=== PATIENT | female | born 1980 | race African-American/Black ===

== ENCOUNTER 2018-03-18 20:35 | Emergency (ER) | payer OTHER ==
[2018-03-18 20:45] VITALS: BP 117/75; PULSE 94; TEMP 98.8; BMI 33.5
--- NOTE | 2018-03-18 21:24 | PDOC ---
Attending Attestation - Resident Resident Name: Micheal Tejada - ED Attending Attestation I have performed the following: I have examined & evaluated the patient, The case was reviewed & discussed with the resident, I agree w/resident's findings & plan, Exceptions are as noted - HPI HPI: 03/21/18 11:22 Ms Cosme Neely is a 38 y/o female presenting to [facility] ER due to headache and concern that she is experiencing a stroke. Pt has a h/o migraine which typically begins with left eye aura followed by right sided eye pain/head pain. Pt had this this evening, gradual progression of pain No fevers or chills no neurologic deficits - weakness, numbness or confusion The patient was seen in the past by Dr Benjamin and due to headaches she had an MRI which was abnormal She followed up with Neuro, no specific plan When she typically gets this headache, it improved after taking Excedrin. she did that this evening and headache has been improving Last week she had an episode of numbness which resolved. That in addition to the headache prompted her ER visit to [facility] for CVA - Physicial Exam PE: 03/21/18 11:25 Constitutional: Well-developed, well-nourished female in no acute distress. Alert and oriented x4. Head: Normocephalic. No obvious external signs of trauma. Eyes: PERRL. EOMI. Sclerae white. Conjunctiva moist and not injected. Cardiovascular: Regular rate and regular rhythm. No murmur, rubs, gallops. Respiratory:Clear to auscultation bilaterally. Gastrointestinal: abdomen is soft, non-tender, non-distended. Neuro: Alert and oriented.No focal deficits. Moving all four extremities spontaneously. Intact sensation to all four extremities. Cranial nerves II-XII intact. Skin: Warm, dry, and intact. No bruising, rashes, or other lesions.
--- NOTE | 2018-03-18 22:04 | PDOC ---
History of Present Illness - General Chief Complaint: CVA/TIA Stated Complaint: HEADACHE Time Seen by Provider: 03/18/18 20:58 History Source: Patient, Spouse Exam Limitations: No Limitations - History of Present Illness Initial Comments: 38 y/o female presenting to [facility] ER via private auto concerned that she is experiencing a stroke. The pt is complaining of a headache localized periorbitally on the right side. It was preceded by a visual aura in the left eye. Headache was not maximal at onset; progressively worsened over 15-20 minutes. Denies facial drooping, trouble swallowing, or gait disturbance. Endorses lacrimation from R eye. Took 2x OTC Excedrin with has provided a little bit of relief. She reports a history of similar headaches occuring once a month since 2014. 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 Cause is unknown to pt; denies personal or familial h/o CVA , sickle cell trait or disease, or coagulopathies. Past History - Past Medical History Allergies/Adverse Reactions: Allergies Allergy/AdvReac Type Severity Reaction Status Date / Time No Known Allergies Allergy Verified 03/18/18 20:42 Home Medications: Ambulatory Orders Aspirin 81 mg PO DAILY 03/18/18 Atorvastatin Calcium [Lipitor] 10 mg PO DAILY 03/18/18 CVA: Yes (12/2017) COPD: No - Suicide/Smoking/Psychosocial Hx Smoking Status: Yes Smoking History: Current every day smoker Number of Cigarettes Smoked Daily: 20 Information on smoking cessation initiated: Yes 'Breaking Loose' booklet given: 03/18/18 Hx Alcohol Use: No Drug/Substance Use Hx: No Review of Systems - Review of Systems Constitutional: No: Chills, Diaphoresis, Fever HEENTM: Yes: See HPI Respiratory: No: Shortness of Breath Cardiac (ROS): No: Chest Pain, Lightheadedness, Palpitations, Syncope ABD/GI: No: Constipated, Diarrhea, Nausea, Vomiting : No: Burning, Dysuria, Discharge, Frequency, Hematuria Musculoskeletal: No: Muscle Pain Integumentary: No: Bruising, Rash, Sweating Neurological: Yes: Headache. No: Numbness, Paresthesia, Seizure, Tingling, Tremors, Weakness, Unsteady Gait, Ataxia, Dizziness Hematologic/Lymphatic: No: Easy Bleeding, Easy Bruising *Physical Exam - Vital Signs Last Vital Signs Temp Pulse Resp BP Pulse Ox 98.8 F 94 H 18 117/75 99 03/18/18 20:42 03/18/18 20:42 03/18/18 20:42 03/18/18 20:42 03/18/18 20:42 - Physical Exam Comments: Constitutional: Well-developed, well-nourished female in no acute distress. Found semi-fowlers in hospital bed. Alert and oriented x4. Answered all questions appropriately and completely. Speech was non-labored, non-pressured. Head: Normocephalic. No obvious external signs of trauma. Eyes: PERRL. EOMI. Sclerae white. Conjunctiva moist and not injected. NOSE: No nasal discharge. THROAT: Oral cavity and pharynx normal. No inflammation, swelling, exudate, or lesions. Teeth and gingiva in good general condition. ENT: EAMs normal. Hearing normal. Nasal mucosa normal. Lips, gums and oropharynx: pink, moist, not injected, no lesions, no ulcerations Neck: Supple, trachea is midline. No JVD or thyromegaly. Cardiovascular: Regular rate and regular rhythm. No murmur, rubs, clicks, or gallops. Peripheral pulses: Radial pulses full. PMI not displaced. Respiratory: Equal chest rise and fall. Clear to auscultation bilaterally. No stridor, no wheezing, no rhonchi. Gastrointestinal: abdomen is soft, non-tender, non-distended. Neuro: Alert and oriented.No focal deficits. Moving all four extremities spontaneously. Intact sensation to all four extremities. Upper extremity and lower extremity proximal and distal strength 5/5, fabrication supervisor strength 5/5 - equal and symmetric. Plantar flexion and dorsiflexion 5/5. Normal finger to nose. Negative Romberg. Cranial nerves II-XII intact. Psych: Affect: appropriate. Mood: normal. Skin: Warm, dry, and intact. No bruising, rashes, or other lesions. Medical Decision Making - Medical Decision Making *Reviewed nursing notes and prior visit documentation. 38 y/o female complaining of right periorbital headache with preceding visual aura and right eye lacrimation. History of similar episodes in past and previous cortical infarct discovered on outpatient MRI. Concerned as she experienced an episode of slurred speech a few weeks ago. Afebrile. Vitals unremarkable for hypotension, hypertension, or tachycardia. Physical exam revealed no neurologic deficits. Symptoms concerning for migraine versus cluster headache versus tension headache. Low suspicion for CVA/TIA as no neurologic deficits appreciated. Non-con head CT ordered by RME. Pt placed on oxygen 2 LPM via nasal cannula for symptom relief.. Head CT: Unremarkable for acute hemorrhagic or ischemic changes. 21:[address] Gilliam, neurology. Pt preferred to not have consult with Dr. Gillette, the neurologist [employer] consultant. 22:04 Pt reports symptoms are improving with oxygen. Possible relief from OTC Excedrin from prior to arrival. Dr. Gilliam did not return page. Pt stated that she felt her condition did not require emergent neurology consult this evening as her symptoms were improving. Discussed risks and benefits with pt and . Also discussed normal imaging study. Answered all questions. Both pt and expressed verbal understanding and agreement with plan to discharge home with outpatient neurology evaluation within the next 2-3 days. Pt discharged from the department without further incident. *DC/Admit/Observation/Transfer Diagnosis at time of Disposition: Headache Qualifiers: Headache type: unspecified Headache chronicity pattern: acute headache Intractability: not intractable Qualified Code(s): R51 - Headache - Discharge Dispostion Disposition: HOME Condition at time of disposition: Good Decision to Admit order: No - Referrals Referrals: Beatriz Benjamin MD [Primary Care Provider] - Ramya Gilliam MD [Staff Physician] - - Patient Instructions Printed Discharge Instructions: DI for Headache, DI for Cluster Headache Additional Instructions: The CT scan of your head was normal and didn't show signs of a stroke. Continue to take all your medications as prescribed. No change was made to them today. Please follow up with your primary care doctor or a neurologist within the next 3-4 days. I have placed a referral for you to see Dr. Gilliam (a neurologist). You will need to call office to make an appointment. Please come back to the emergency department if your headache worsens, if you get blurry vision, if you have trouble walking, if you pass out, or if you think you need additional emergency evaluation. Print Language: GREENLANDIC - Post Discharge Activity
== END 2018-03-18 22:48 | disposition home or self-care (01) ==
LOC: JER 20:35
DX: R51 Headache (principal); Z86.73 Personal history of transient ischemic attack (TIA), and cerebral infarction without residual deficits; Z79.82 Long term (current) use of aspirin
CPT/HCPCS: 70450-TC; 99282-25

== ENCOUNTER 2018-04-16 16:56 | Emergency (ER) | payer OTHER ==
[2018-04-16 17:47] VITALS: BP 114/74; PULSE 94; TEMP 99.1; BMI 33.5
[2018-04-16] MEDS ORDERED: IBUPROFEN 400 MG TABLET (FP) PO ONE ×2 (18:15→18:20)
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
== END 2018-04-16 18:22 | disposition home or self-care (01) ==
LOC: JERFT 16:56
DX: S39.012A Strain of muscle, fascia and tendon of lower back, initial encounter (principal); V43.52XA Car driver injured in collision with other type car in traffic accident, initial encounter; Y92.488 Other paved roadways as the place of occurrence of the external cause; Y93.89 Activity, other specified; Y99.8 Other external cause status; Z86.73 Personal history of transient ischemic attack (TIA), and cerebral infarction without residual deficits; F17.210 Nicotine dependence, cigarettes, uncomplicated
CPT/HCPCS: 99281-25

== ENCOUNTER 2019-03-26 10:25 | Emergency (ER) | payer OTHER ==
[2019-03-26 10:39] VITALS: BP 106/61; PULSE 80; TEMP 98.6; BMI 34.5
--- NOTE | 2019-03-26 11:44 | PDOC ---
History of Present Illness - General Chief Complaint: Pain Stated Complaint: CHEST PAIN Time Seen by Provider: 03/26/19 10:50 History Source: Patient Exam Limitations: No Limitations - History of Present Illness Initial Comments: 03/26/19 11:32 39 yo F w/ a h/o HLD, TIA, 1PPD smoker comes in c/o 1 week of intermittent L sided chest wall pain, L shoulder pain, L upper back pain and L sided neck pain which all started after she had a mammogram and a hysteroscopy a week ago. ALl symptoms are worse with movement. No other complaints today, no difficulty breathing, no fever/chills, no NVD, no numbness anywhere, no weakness, no tingling (had a vague episode of tingling to the L arm 10 days ago, which has since resolved). N headache, no dizziness, no vision changes, no speech changes , no memory changes, no head trauma, no injury, no recent fall. Pt has been taking aleve and her pain has gotten better but she wanted to get checked to make sure it was nothing other than a muscle spasm. Denies drug use. Denies h/o cardiac disease. Denies family h/o cardiac disease. Past History - Past Medical History Allergies/Adverse Reactions: Allergies Allergy/AdvReac Type Severity Reaction Status Date / Time No Known Allergies Allergy Verified 03/26/19 10:39 Home Medications: Ambulatory Orders Aspirin 81 mg PO DAILY 03/18/18 Atorvastatin Calcium [Lipitor] 10 mg PO DAILY 03/18/18 Ibuprofen [Motrin -] 600 mg PO TID #21 tablet 03/26/19 Methocarbamol [Robaxin-750] 750 mg PO TID #15 tablet 03/26/19 CVA: Yes (12/2017 TIA) COPD: No DVT: No - Suicide/Smoking/Psychosocial Hx Smoking Status: Yes Smoking History: Current every day smoker Number of Cigarettes Smoked Daily: 20 Information on smoking cessation initiated: No 'Breaking Loose' booklet given: 04/16/18 Hx Alcohol Use: No Drug/Substance Use Hx: No Review of Systems - Review of Systems Able to Perform ROS?: Yes Constitutional: No: Chills, Fever, Malaise, Night Sweats HEENTM: No: Eye Pain, Recent change in vision, Throat Pain Respiratory: No: Cough, Shortness of Breath Cardiac (ROS): Yes: Chest Pain. No: Palpitations, Chest Tightness ABD/GI: No: Diarrhea, Nausea, Vomiting, Abdominal cramping : No: Dysuria, Hematuria Integumentary: No: Rash Neurological: No: Headache, Numbness, Dizziness Psychiatric: No: Change in Appetite Endocrine: No: Unexplained Weight Loss *Physical Exam - Vital Signs Last Vital Signs Temp Pulse Resp BP Pulse Ox 98.6 F 80 18 106/61 98 03/26/19 10:36 03/26/19 10:36 03/26/19 10:36 03/26/19 10:36 03/26/19 10:36 - Physical Exam General Appearance: Yes: Nourished. No: Apparent Distress HEENT: positive: YVONNE, Normal ENT Inspection, Normal Voice. negative: Pale Conjunctivae, Scleral Icterus (R), Scleral Icterus (L) Neck: positive: Supple. negative: Decreased range of motion, Tender midline Respiratory/Chest: positive: Lungs Clear, Normal Breath Sounds, Other ((+) reproducible L sided chest wall tenderness). negative: Respiratory Distress, Accessory Muscle Use Cardiovascular: positive: Regular Rhythm, Regular Rate Gastrointestinal/Abdominal: positive: Normal Bowel Sounds, Soft. negative: Tender Musculoskeletal: positive: Normal Inspection, Other. negative: CVA Tenderness, Decreased Range of Motion Extremity: positive: Normal Capillary Refill, Normal Inspection, Normal Range of Motion, Other (L sided neck/trapezius/L shoulder tenderness with muscle spasm. L shoudler w/ FROM, 5/5 strength. Good pulses.). negative: Tender, Pedal Edema Integumentary: positive: Normal Color, Dry. negative: Jaundice, Rash Neurologic: positive: Fully Oriented, Alert, Normal Mood/Affect Heart Score/ECG Review - History History: Slightly suspicious - Electrocardiogram EKG: Normal - Age Age: </= 45 - Risk Factors Risk Factors Heart Score: Yes Hx Hypercholesterolemia, Yes Smoking History Based on the list above the patient has:: 1-2 risk factors - ECG Intrepretation Rhythm: Regular Rhythm ED Treatment Course - LABORATORY CBC & Chemistry Diagram: 03/26/19 11:45 03/26/19 11:45 - RADIOLOGY Radiology Studies Ordered: Category Date Time Status CHEST PA & LAT [RAD] Stat Radiology 03/26/19 11:22 Ordered Medical Decision Making - Medical Decision Making 03/26/19 12:05 39 yo F w/ likely MSK pain, but to her risk factors, will do 1 st of trop and if normal will discharge. EKG with NSR. CXR ordered. WIll give motrin and robaxin for pain. 03/26/19 13:16 Labs WNLs Pt feels better after meds. CXR normal WIll dsicharge with PMD follow up Cardiology follow up Return for worsening/concerning symptoms Pt verbalizes understanding and agrees with plan *DC/Admit/Observation/Transfer Diagnosis at time of Disposition: Musculoskeletal chest pain - Discharge Dispostion Disposition: HOME Condition at time of disposition: Stable - Referrals Referrals: Beatriz Benjamin MD [Primary Care Provider] - Raffi Walton MD [Staff Physician] - - Patient Instructions Printed Discharge Instructions: DI for Musculoskeletal Pain Additional Instructions: Return for worsening/concerning symptoms. Please make a follow up appointment with the linter saw sharpener and with your PMD. You may take robaxin and motrin for your symptoms. - Post Discharge Activity
[2019-03-26] MEDS ORDERED: METHOCARBAMOL 500 MG TABLET PO ONE (12:06)
[2019-03-26] MEDS ORDERED: IBUPROFEN 600 MG TABLET (FP) PO ONE ×2 (12:06→12:35)
[2019-03-26] MEDS ORDERED: METHOCARBAMOL 500 MG TABLET ONE (12:35)
[2019-03-26 12:45] LABS: BASO % 0.4 % (0-2.0); EOS % 1.6 % (0-4.5); HEMATOCRIT 41.9 % (32.4-45.2); HEMOGLOBIN 14.3 GM/dL (10.7-15.3); LYMPH % 42.1 % (8-40); MCH 30.9 pg (25.7-33.7); MCHC 34.1 g/dl (32.0-36.0); MEAN CELL VOLUME 90.6 fl (80-96); MEAN PLT VOLUME 8.1 fl (7.5-11.1); NEUT % 50.9 % (42.8-82.8); PLATELET COUNT 272 K/MM3 (134-434); RBC 4.62 M/mm3 (3.60-5.2); RDW 13.2 % (11.6-15.6); WHITE BLOOD COUNT 5.9 K/mm3 (4.0-10.0)
[2019-03-26 13:03] LABS: ALBUMIN 3.9 g/dl (3.4-5.0); ALK PHOS 60 U/L (45-117); ANION GAP 6 MMOL/L (8-16); BILIRUBIN,TOTAL 0.2 mg/dL (0.2-1); BLOOD UREA NITROGEN 17.1 mg/dL (7-18); CALCIUM 8.8 mg/dL (8.5-10.1); CHLORIDE 110 mmol/L (98-107); CO2 24 mmol/L (21-32); CREATININE 0.7 mg/dL (0.55-1.3); GLUCOSE,RANDOM 90 mg/dL (74-106); LIPASE 99 U/L (73-393); MAGNESIUM 2.1 mg/dL (1.8-2.4); PHOSPHOROUS 3.1 mg/dL (2.5-4.9); POTASSIUM 4.4 mmol/L (3.5-5.1); SGOT/AST 11 U/L (15-37); SGPT/ALT 29 U/L (13-61); SODIUM 141 mmol/L (136-145); TOT PROT 6.8 g/dl (6.4-8.2)
--- NOTE | 2019-03-27 09:32 | EKG ---
Test Reason : Blood Pressure : / mmHG Vent. Rate : 087 BPM Atrial Rate : 087 BPM P-R Int : 148 ms QRS Dur : 086 ms QT Int : 356 ms P-R-T Axes : 059 -05 033 degrees QTc Int : 428 ms NORMAL SINUS RHYTHM WITH SINUS ARRHYTHMIA NORMAL ECG NO PREVIOUS ECGS AVAILABLE Confirmed by ALY RENEE MD ([id number]) on 03/27/2019 9:32:09 AM Referred By: Confirmed By:ALY RENEE MD
== END 2019-03-26 13:38 | disposition home or self-care (01) ==
LOC: JER 10:25
DX: R07.9 Chest pain, unspecified (principal); M25.512 Pain in left shoulder; M54.2 Cervicalgia; M54.6 Pain in thoracic spine; Z86.73 Personal history of transient ischemic attack (TIA), and cerebral infarction without residual deficits; Z98.890 Other specified postprocedural states
CPT/HCPCS: 36415; 71046-TC-FY; 80053; 82550; 83690; 83735; 84100; 84484; 84702; 84703; 85025; 93005; 93010; 99282-25